=== PATIENT | female | born 1945 | race Caucasian/White ===

== ENCOUNTER 2018-02-17 17:27 | Observation (INO) ==
[2018-02-17] MEDS ORDERED: Isovue-370 500 ML INFUS..BTL IV ONE (17:42)
--- NOTE | 2018-02-17 17:51 | Emergency Department Note ---
Disposition Clinical Impression: Chest pain Qualifiers: Chest pain type: unspecified Qualified Code(s): R07.9 - Chest pain, unspecified Disposition: Admitted As Inpatient Condition: Undetermined Referrals: Ayesha Deras MD [Primary Care Provider] - Forms: ED Satisfaction Letter Time of Disposition: 19:19 Chest Pain HPI - General Chief Complaint: ED Chest Pain Stated Complaint: CP Time Seen by Provider: 02/17/18 17:35 Source: patient Mode of arrival: ambulatory Limitations: no limitations Vital Signs Reviewed: Yes Nursing Notes Reviewed: Yes - History of Present Illness HPI Narrative: 72-year-old female with complaint of chest pain with radiation down the left upper extremity and into her jaw. The patient also is experiencing a headache and mild confusion. The patient states she was walking downtown and started experiencing some chest discomfort as well as headache. The patient states that she became very ill. She decided come to the emergency department for evaluation at that time. The patient states she is expressing chest pain as well as radiation into her head. She is also expressing headache. The patient is expressing some mild confusion as well as she is not answering questions clearly correctly. She denies any other complaints at this time. The patient has had a previous cardiac catheter in the past that was negative no stents placed. Patient denies any other complaints at this time. Severity scale (1-10): 7 - Related Data Previous Rx's Medication Instructions Recorded Hydrocodone/Acetaminophen [[place] 1 tab PO Q6H PRN #15 tab 08/03/15 5-325 Tablet] Allergies Allergy/AdvReac Type Severity Reaction Status Date / Time Sulfa (Sulfonamide AdvReac Itching Verified 04/10/16 00:30 Antibiotics) All systems ED: reviewed and negative except as stated. Constitutional: Denies: fever, chills, weakness ENT ED: Denies: congestion Cardiovascular: Reports: chest pain. Denies: palpitations, dyspnea on exertion , edema Respiratory: Reports: dyspnea. Denies: cough Gastrointestinal: Denies: abdominal pain, nausea, vomiting Genitourinary: Denies: urgency, dysuria Musculoskeletal: Reports: neck pain. 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 - Social History Smoking Status: Never smoker Alcohol use: Reports: occasionally Drug use: Reports: none Physical Exam - General Limitations: no limitations General appearance: alert, in no apparent distress - Head Head exam: atraumatic, normocephalic, normal inspection - Eye Eye exam: Present: normal appearance - ENT ENT exam: normal exam - Neck Neck exam: Present: normal inspection, full ROM, trachea midline - Chest Chest inspection: Present: normal inspection, symmetric chest wall rise - Respiratory Respiratory exam: Present: normal lung sounds bilaterally - Cardiovascular Cardiovascular exam: Present: regular rate, normal rhythm, normal heart sounds - Abdominal Exam Abdominal exam: Present: soft, Non-Tender. Absent: tenderness, distention, guarding, rebound, rigidity - Extremities Exam Extremities exam: Present: normal inspection, full ROM. Absent: tenderness, pedal edema - Neurological Exam Neurological exam: Present: alert, CN II-XII intact - Expanded Neurological Exam Patient oriented to: Present: person, place Speech: Present: fluid speech Cranial nerves: EOM function (II, III, IV, ): Normal, facial sensation (V): Normal, facial palsy (VII): Normal Motor strength - LUE: 4/5 Motor strength - RUE: 4/5 Motor strength - LLE: 4/5 Motor strength - RLE: 4/5 Sensory exam upper extremity: light touch: Abnormal Left Sensory exam lower extremity: light touch: Normal Coma Scale Eye Opening: Spontaneous Coma Scale Motor Response: Obeys Commands Coma Scale Verbal Response: Oriented Coma Scale Total: 15 - Skin Skin exam: Present: warm, dry, intact, normal color Course Vital Signs Temperature 98.0 F 02/17/18 17:27 Pulse Rate 63 02/17/18 17:27 Respiratory Rate 14 02/17/18 17:27 Blood Pressure 157/79 02/17/18 17:27 O2 Sat by Pulse Oximetry 92 02/17/18 17:27 Temperature 98.0 F 02/17/18 17:38 Pulse Rate 65 02/17/18 19:15 Respiratory Rate 18 02/17/18 19:15 Blood Pressure 108/92 02/17/18 19:15 O2 Sat by Pulse Oximetry 93 02/17/18 19:15 Oxygen Delivery Oxygen Delivery Room Air Chest Pain - MDM Narrative Medical decision making narrative: Workup in the emergency department demonstrates no acute findings. The patient' s EKG did not treats no acute changes. The patient's troponin is within normal limits. Given the patient's timing and presentation within 2 hours after injury occurred, we will admit the patient for trending of troponin. The patient is a longer having any chest pain but she is still spirits and headache. Patient denies any other complaints at this time. Her CTA of her chest and states no pulmonary embolus and no vascular injury. In addition the patient's head CT demonstrates no acute process. The patient will be admitted to the hospital for further care and observation. Patient made aware and agrees to plan of care further questions or concerns noted. Patient had NIH of 0. Confusion has improved from initial presentation. We will admit the patient to the ED at this time. Accepted by Dr. Tipton. - Lab Data Lab results reviewed: Yes I reviewed the patient's lab results. Result diagrams: 02/17/18 18:12 02/17/18 18:12 Lab Results 02/17/18 02/17/18 02/17/18 Range/Units 17:43 18:12 18:12 WBC 8.0 (4.3-11.1) K/mcL RBC 3.89 (3.82-4.97) M/mcL Hgb 11.7 (11.5-15.4) g/dL Hct 34.2 L (35.3-44.9) % MCV 87.9 (83.0-100.0) fL MCH 30.1 (28.0-33.3) pg MCHC 34.2 (31.6-35.5) g/dL RDW 13.7 (11.5-14.5) % Plt Count 273 (140-400) K/mcL MPV 8.8 L (9.4-12.4) fL Immature Gran % 0.7 (0-4) % Seg Neutrophils % 78.3 % Lymphocytes % 16.4 % Monocytes % 4.0 % Eosinophils % 0.1 % Basophils % 0.5 % Neutrophils # 6.3 (1.6-8.9) K/mcL Lymphocytes # 1.3 (0.6-4.6) K/mcL Monocytes # 0.3 (0.0-1.3) K/mcL Eosinophils # 0.0 (0.0-0.6) K/mcL Basophils # 0.0 (0.0-0.2) K/mcL PT 10.1 (9.4-12.1) Seconds INR 0.9 APTT 25.1 L (26.0-36.0) Seconds Sodium (136-145) mEq/L Potassium (3.5-5.1) mEq/L Chloride (98-107) mEq/L Carbon Dioxide (23-29) mEq/L BUN (8-23) mg/dL Creatinine (0.60-1.20) mg/dL Est GFR ( Amer) (> 60) Est GFR (Non-Af Amer) (> 60) BUN/Creatinine Ratio (6-26) Glucose (70-105) mg/dL POC Glucose 138 H (70-99) mg/dL Calculated Osmolality (280-300) Calcium (8.6-10.3) mg/dL Troponin I (< 0.04) ng/mL 02/17/18 Range/Units 18:12 WBC (4.3-11.1) K/mcL RBC (3.82-4.97) M/mcL Hgb (11.5-15.4) g/dL Hct (35.3-44.9) % MCV (83.0-100.0) fL MCH (28.0-33.3) pg MCHC (31.6-35.5) g/dL RDW (11.5-14.5) % Plt Count (140-400) K/mcL MPV (9.4-12.4) fL Immature Gran % (0-4) % Seg Neutrophils % % Lymphocytes % % Monocytes % % Eosinophils % % Basophils % % Neutrophils # (1.6-8.9) K/mcL Lymphocytes # (0.6-4.6) K/mcL Monocytes # (0.0-1.3) K/mcL Eosinophils # (0.0-0.6) K/mcL Basophils # (0.0-0.2) K/mcL PT (9.4-12.1) Seconds INR APTT (26.0-36.0) Seconds Sodium 126 L (136-145) mEq/L Potassium 3.7 (3.5-5.1) mEq/L Chloride 96 L (98-107) mEq/L Carbon Dioxide 22 L (23-29) mEq/L BUN 11 (8-23) mg/dL Creatinine 1.04 (0.60-1.20) mg/dL Est GFR ( Amer) > 60 (> 60) Est GFR (Non-Af Amer) 52 L (> 60) BUN/Creatinine Ratio 11 (6-26) Glucose 143 H (70-105) mg/dL POC Glucose (70-99) mg/dL Calculated Osmolality 264 L (280-300) Calcium 9.0 (8.6-10.3) mg/dL Troponin I < 0.03 (< 0.04) ng/mL - Radiology Data Radiology results reviewed: Yes I reviewed the patient's radiology results. Abdomen/Pelvis CTA 02/17/18 00:00 IMPRESSION: 1. No pulmonary embolus. 2. No acute vascular injury including aortic dissection, pseudoaneurysm, or intramural hematoma. 3. No acute intrathoracic abnormality. 4. Mild wall thickening of the gastric antrum and pylorus without adjacent stranding. Findings are nonspecific and may represent mild gastritis. 5. Re-demonstration of prominent upper abdominal lymph node. Some of the nodes are stable, decreased, or increased in size since December 2014 and remain nonspecific. 6. Status post partial colectomy and cholecystectomy. D/ / 02/17/2018 18:54:37 Elizabeth Tirado MD / piyush Interpreting Provider: Elizabeth Tirado MD Chest CTA 02/17/18 17:43 IMPRESSION: 1. No pulmonary embolus. 2. No acute vascular injury including aortic dissection, pseudoaneurysm, or intramural hematoma. 3. No acute intrathoracic abnormality. 4. Mild wall thickening of the gastric antrum and pylorus without adjacent stranding. Findings are nonspecific and may represent mild gastritis. 5. Re-demonstration of prominent upper abdominal lymph node. Some of the nodes are stable, decreased, or increased in size since December 2014 and remain nonspecific. 6. Status post partial colectomy and cholecystectomy. D/ / 02/17/2018 18:54:37 Elizabeth Tirado MD / piyush Interpreting Provider: Elizabeth Tirado MD Head CT 02/17/18 17:46 IMPRESSION: No acute intracranial abnormality. D/ / Minor Isbell MD / Minor Isbell MD Interpreting Provider: Minor Isbell MD - EKG Data EKG attestation: Yes I reviewed and interpreted this EKG. EKG results narrative: Heart rate 61 beats per. Electronic ventricular pacemaker. No ST elevation or ST depression noted. No acute changes noted.
--- NOTE | 2018-02-17 18:25 | Emergency Department Note ---
Disposition Clinical Impression: Chest pain Qualifiers: Chest pain type: unspecified Qualified Code(s): R07.9 - Chest pain, unspecified Disposition: Still a Patient Condition: Good Forms: ED Satisfaction Letter General Adult HPI - General Chief complaint: ED Chest Pain Stated complaint: CP Time Seen by Provider: 02/17/18 17:35 Source: patient Mode of arrival: ambulatory Limitations: no limitations - History of Present Illness Pain Scale: 7 - Related Data Previous Rx's Medication Instructions Recorded Hydrocodone/Acetaminophen [[place] 1 tab PO Q6H PRN #15 tab 08/03/15 5-325 Tablet] Allergies Allergy/AdvReac Type Severity Reaction Status Date / Time Sulfa (Sulfonamide AdvReac Itching Verified 04/10/16 00:30 Antibiotics) Constitutional: Denies: fever, chills, weakness ENT ED: Denies: congestion Cardiovascular: Reports: chest pain. Denies: palpitations, dyspnea on exertion , edema Respiratory: Reports: dyspnea. Denies: cough Gastrointestinal: Denies: abdominal pain, nausea, vomiting Genitourinary: Denies: urgency, dysuria Musculoskeletal: Reports: neck pain. 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 - Social History Smoking Status: Never smoker Smokeless Tobacco Status: No Alcohol use: Reports: occasionally Drug use: Reports: none Physical Exam - General Limitations: no limitations General appearance: alert, in no apparent distress Course Vital Signs Temperature 98.0 F 02/17/18 17:27 Pulse Rate 63 02/17/18 17:27 Respiratory Rate 14 02/17/18 17:27 Blood Pressure 157/79 02/17/18 17:27 O2 Sat by Pulse Oximetry 92 02/17/18 17:27 Temperature 98.0 F 02/17/18 17:38 Pulse Rate 65 02/17/18 17:45 Respiratory Rate 18 02/17/18 17:45 Blood Pressure 144/70 02/17/18 18:10 O2 Sat by Pulse Oximetry 96 02/17/18 17:45 Oxygen Delivery Oxygen Delivery Room Air Medical Decision Making - Lab Data Lab Results 02/17/18 Range/Units 17:43 POC Glucose 138 H (70-99) mg/dL Attestation Statement - Attestation Attestation: I examined this patient and my medical decision-making was reviewed with the Resident Physician. I agree with the documented findings, disposition and treatment plan as described except to the extent set forth below. 72 yearold female presnets to the ED with complanis of weakness and headache and pain that radiates into her biltaeral arms and legs while she was shopping today. PAtinet had asymmetric bilateral blood pressures, no abodminal pain. WE will do cardiopumonary workup and CTA Chestto rule out dissection. Likely will admit to medicnie.
[2018-02-17 18:39] LABS: Basophils % 0.5 %; Eosinophils % 0.1 %; Hematocrit 34.2 % (35.3-44.9); Hemoglobin 11.7 g/dL (11.5-15.4); Immature Granulocytes % 0.7 % (0-4); Lymphocytes # 1.3 K/mcL (0.6-4.6); Lymphocytes % 16.4 %; Mean Corpuscular HGB Conc 34.2 g/dL (31.6-35.5); Mean Corpuscular Hemoglobin 30.1 pg (28.0-33.3); Mean Corpuscular Volume 87.9 fL (83.0-100.0); Mean Platelet Volume 8.8 fL (9.4-12.4); Monocytes # 0.3 K/mcL (0.0-1.3); Neutrophils # 6.3 K/mcL (1.6-8.9); Platelet Count 273 K/mcL (140-400); Red Blood Count 3.89 M/mcL (3.82-4.97); Red Cell Distribution Width 13.7 % (11.5-14.5); Segmented Neutrophils % 78.3 %
[2018-02-17 18:58] LABS: BUN/Creatinine Ratio 11 (6-26); Blood Urea Nitrogen 11 mg/dL (8-23); Carbon Dioxide 22 mEq/L (23-29); Chloride 96 mEq/L (98-107); Glucose 143 mg/dL (70-105); Osmolality,Calculated 264 (280-300); Potassium 3.7 mEq/L (3.5-5.1); Sodium 126 mEq/L (136-145); Troponin I < 0.03 ng/mL (< 0.04); eGFR For African Americans > 60 (> 60); eGFR For Non-African Americans 52 (> 60)
[2018-02-17 19:03] LABS: INR 0.9; Prothrombin Time 10.1 Seconds (9.4-12.1)
[2018-02-17 19:04] LABS: Activated Partial Thrombo Time 25.1 Seconds (26.0-36.0)
[2018-02-17] MEDS ORDERED: Aspirin 325 MG TABLET PO ONE (19:11)
--- NOTE | 2018-02-17 20:14 | Internal Med History&Physical ---
Date of Encounter: 02/17/18 Time of Encounter: 08:00 Internal Medicine - H&P: HPI Chief complaint: Chest Pain Admitted From: Emergency Dept Plans for Post Hospital Care: Home History of present illness: Ms. Almeida is a 72 year old female patient with a history of hypertension, gastroesophageal reflux disease who came to the ER with complaints of chest heaviness. She was out shopping and began to have some chest heaviness along with a headache. She sat down for a while in her car with some improvement in her symptoms. She then went and ate but continued to feel sick. As such she came to the ER. She reports severe headache with some tearing of her left eye. No focal weakness or numbness. She does not have the chest heaviness right now. The pain radiated to her shoulders. She reports she had a heart catheterization before which was negative. She is also add stress test before which were negative. No work up in the past year. She has a pacemaker due to what sounds like heart block. She denies any shortness of breath at this time. No orthopnea or PND. She had previously had an episode of intractable headache on Saturday which took almost a day to improve. Past Med Surg Social Fam HX - Past Medical History Attestation: Yes The following information was validated with the patient. Source: patient Medical history: cancer, GERD, hypertension Additional medical history: colon cancer Psychiatric history: anxiety, panic disorder - Past Surgical History Surgical History: appendectomy, cholecystectomy, pacemaker/AICD Additional surgical history: right rotator cuff surgery, Colon surgery - Social History Smoking Status: Never smoker Smokeless Tobacco Status: No Alcohol use: occasionally Drug use: none - Additional Family History Additional family history: Family history reviewed and found to be noncontributory at this time. Internal Medicine - H&P: Meds Escitalopram [Lexapro] 20 mg PO DAILY 02/17/18 [History] Esomeprazole Magnesium [Nexium] 40 mg PO DAILY 02/17/18 [History] Losartan Potassium [Cozaar] 50 mg PO DAILY 02/17/18 [History] Zolpidem [Ambien] 10 mg PO HS 02/17/18 [History] 3 Allergy/AdvReac Type Severity Reaction Status Date / Time Sulfa (Sulfonamide AdvReac Itching Verified 02/17/18 19:23 Antibiotics) All Systems PM: A 10-system review of systems was performed and is negative for pertinent findings except as documented above in the HPI. - Constitutional Constitutional: no chills, no fever(s), no night sweats - EENT Eyes: no change in vision, no discharge, no pain, no photophobia Ears: no ear discharge, no ear pain, no tinnitus Nose, mouth and throat: no dysphagia, no nasal discharge, no neck pain, no sore throat - Cardiovascular Cardiovascular ROS IM: no chest pain, no diaphoresis, no dyspnea, no lightheadedness, no palpitations, no syncope - Respiratory Respiratory: no cough, no dyspnea, no wheezing, no excessive phlegm production - Gastrointestinal Gastrointestinal: no abdominal pain, no diarrhea, no hematemesis, no hematochezia, no melena, no nausea, no vomiting - Genitourinary Genitourinary: no change in urinary stream, no dysuria, no flank pain, no hematuria - Musculoskeletal Musculoskeletal ROS IM: no numbness, no tingling - Integumentary Integumentary IM: no rash, no unusual bruising - Neurological Neurological ROS: no confusion, no convulsions, no focal weakness, no numbness, no tingling, no tremor(s) - Hematologic/Lymphatic Hematologic/Lymphatic: no easy bruising - Constitutional Vitals: Temp Pulse Resp BP Pulse Ox 98.0 F 64 18 146/69 95 02/17/18 17:38 02/17/18 19:27 02/17/18 19:27 02/17/18 19:27 02/17/18 19:27 General appearance: Present: cooperative, A&O X 3, answers questions appropriately - Respiratory Respiratory exam: Present: CTAB. Absent: accessory muscle use, rales, rhonchi, wheezes - Cardiovascular Cardiovascular exam: Present: RRR, +S1, +S2. Absent: diastolic murmur, gallop, rubs, systolic murmur - GI/Abdominal GI/Abdominal exam: Present: normal bowel sounds, soft, no peritoneal signs. Absent: distended, tenderness Internal Med - H&P Results - Labs CBC & Chem 7: 02/17/18 18:12 02/17/18 18:12 Labs: Short CBC 02/17/18 Range/Units 18:12 WBC 8.0 (4.3-11.1) K/mcL Hgb 11.7 (11.5-15.4) g/dL Hct 34.2 L (35.3-44.9) % Plt Count 273 (140-400) K/mcL Neutrophils # 6.3 (1.6-8.9) K/mcL BMP 02/17/18 18:12 Sodium 126 L Potassium 3.7 Chloride 96 L Carbon Dioxide 22 L BUN 11 Creatinine 1.04 Glucose 143 H Calcium 9.0 Cardiac Enzymes 02/17/18 Range/Units 18:12 Troponin I < 0.03 (< 0.04) ng/mL - EKG Data -: EKG Interpreted by Myself - EKG Data EKG comments: 02/17/18 20:46 Paced rhythm - Impressions ITS Impressions Abdomen/Pelvis CTA 02/17/18 00:00 IMPRESSION: 1. No pulmonary embolus. 2. No acute vascular injury including aortic dissection, pseudoaneurysm, or intramural hematoma. 3. No acute intrathoracic abnormality. 4. Mild wall thickening of the gastric antrum and pylorus without adjacent stranding. Findings are nonspecific and may represent mild gastritis. 5. Re-demonstration of prominent upper abdominal lymph node. Some of the nodes are stable, decreased, or increased in size since December 2014 and remain nonspecific. 6. Status post partial colectomy and cholecystectomy. D/ / 02/17/2018 18:54:37 Elizabeth Tirado MD / piyush Interpreting Provider: Elizabeth Tirado MD Chest CTA 02/17/18 17:43 IMPRESSION: 1. No pulmonary embolus. 2. No acute vascular injury including aortic dissection, pseudoaneurysm, or intramural hematoma. 3. No acute intrathoracic abnormality. 4. Mild wall thickening of the gastric antrum and pylorus without adjacent stranding. Findings are nonspecific and may represent mild gastritis. 5. Re-demonstration of prominent upper abdominal lymph node. Some of the nodes are stable, decreased, or increased in size since December 2014 and remain nonspecific. 6. Status post partial colectomy and cholecystectomy. D/ / 02/17/2018 18:54:37 Elizabeth Tirado MD / piyush Interpreting Provider: Elizabeth Tirado MD Head CT 02/17/18 17:46 IMPRESSION: No acute intracranial abnormality. D/ / Minor Isbell MD / Minor Isbell MD Interpreting Provider: Minor Isbell MD - Assessment and plan (1) Chest pain Current Visit: Yes Status: Acute Assessment and plan: Patient at intermediate risk for coronary artery disease due to age, comorbidities. We will place patient in hospital for observation. Telemetry. Trend troponins. If troponins are negative, consider stress test tomorrow. Check lipid profile and A1c. Qualifiers: Chest pain type: precordial pain Qualified Code(s): R07.2 - Precordial pain (2) Headache Current Visit: Yes Status: Acute Assessment and plan: Patient with headache with tearing in the left eye. Tension type versus cluster headache. We will treat symptomatically. We will avoid NSAIDs due to history of GERD. Treat with Tylenol, O2 supplementation as needed. Qualifiers: Headache type: tension-type Headache chronicity pattern: acute headache Intractability: intractable Qualified Code(s): G44.201 - Tension-type headache , unspecified, intractable (3) Essential hypertension Current Visit: Yes Status: Chronic Assessment and plan: Monitor blood pressure. Resume home medications (4) Gastroesophageal reflux disease Current Visit: Yes Status: Chronic Assessment and plan: Continue PPI Qualifiers: Esophagitis presence: esophagitis presence not specified Qualified Code(s) : K21.9 - Gastro-esophageal reflux disease without esophagitis - Time Spent With Patient Total time spent is greater than 50% in coordination of care (as documented) at patient's floor/unit and/or counseling patient:
[2018-02-17] MEDS ORDERED: Acetaminophen 325 MG TABLET PO PRN (20:49)
[2018-02-17] MEDS ORDERED: Naloxone 0.4 MG/ML INJ IVP PRN (20:49)
[2018-02-17] MEDS ORDERED: 0.9 % Sodium Chloride 1,000 ML IVC SCH (21:00)
[2018-02-18 02:22] LABS: Basophils % 0.3 %; Eosinophils % 0.5 %; Hemoglobin 12.3 g/dL (11.5-15.4); Immature Granulocytes % 0.3 % (0-4); Lymphocytes # 2.4 K/mcL (0.6-4.6); Lymphocytes % 26.5 %; Mean Corpuscular HGB Conc 34.2 g/dL (31.6-35.5); Mean Corpuscular Hemoglobin 29.4 pg (28.0-33.3); Mean Corpuscular Volume 85.9 fL (83.0-100.0); Mean Platelet Volume 9.3 fL (9.4-12.4); Monocytes # 0.7 K/mcL (0.0-1.3); Monocytes % 8.1 %; Neutrophils # 5.7 K/mcL (1.6-8.9); Platelet Count 303 K/mcL (140-400); Red Blood Count 4.19 M/mcL (3.82-4.97); Red Cell Distribution Width 13.9 % (11.5-14.5); Segmented Neutrophils % 64.3 %
[2018-02-18 02:44] LABS: BUN/Creatinine Ratio 11 (6-26); Blood Urea Nitrogen 11 mg/dL (8-23); Calcium 9.6 mg/dL (8.6-10.3); Carbon Dioxide 25 mEq/L (23-29); Chloride 99 mEq/L (98-107); Chol/HDL Ratio 3.6 (0-4.9); Cholesterol 202 mg/dL (< 200); Glucose 103 mg/dL (70-105); HDL Cholesterol 56 mg/dL (40-59); LDL Cholesterol,Calculated 88 mg/dL (0-99); Osmolality,Calculated 272 (280-300); Potassium 3.9 mEq/L (3.5-5.1); Sodium 131 mEq/L (136-145); Triglycerides 289 mg/dL (< 150); eGFR For African Americans > 60 (> 60); eGFR For Non-African Americans 53 (> 60)
[2018-02-18] MEDS ORDERED: Regadenoson 0.4 MG/5 ML SYRINGE IVP ONE (05:35)
[2018-02-18 15:39] VITALS: BP 153/71
--- NOTE | 2018-02-18 16:49 | Electrocardiograph Report ---
[place] [id number] Test Date: 2018-02-17 Pat Name: Kellie Almeida Department: 104 Room: 3B23 Gender: F Communications Attendant: : 1945 Requested By: Rogerio Nascimento Order Number: [id number] Reading MD: Reji Villela Measurements Intervals [place] Rate: 61 P: 46 CO: 203 QRS: -73 QRSD: 174 T: 69 QT: 472 QTc: 475 Interpretive Statements ELECTRONIC VENTRICULAR PACEMAKER ABNORMAL RHYTHM ECG Electronically Signed On 02-18-2018 16:47:05 EDT by Reji Villela
--- NOTE | 2018-02-18 16:53 | Discharge Summary ---
- NOTES TO OUTPATIENT PROVIDER Notes to Outpatient Provider: Nuclear stress Impression: Perfusion imaging was negative for ischemia. Small sized, moderate intensity fixed perfusion defect involving the apical. inferior wall. Findings likely represent artifact. However prior infarct. cannot be ruled out. Hyponatremia- monitor Chem-7 Orders not resulted at time of discharge: Pending orders 02/17/18 21:58 NM donna perf SPECT multi [NM] Routine Date of Encounter: 02/18/18 Time of Encounter: 16:49 - Discharge Diagnosis (1) Chest pain Priority: Primary Status: Acute Qualifiers: Chest pain type: precordial pain Qualified Code(s): R07.2 - Precordial pain (2) Headache Priority: Secondary Status: Acute Qualifiers: Headache type: tension-type Headache chronicity pattern: acute headache Intractability: intractable Qualified Code(s): G44.201 - Tension-type headache , unspecified, intractable (3) Essential hypertension Priority: Secondary Status: Chronic (4) Gastroesophageal reflux disease Priority: Secondary Status: Chronic Qualifiers: Esophagitis presence: esophagitis presence not specified Qualified Code(s) : K21.9 - Gastro-esophageal reflux disease without esophagitis Hospital course: Ms. Almeida is a 72 year old female past medical history of hypertension GERD KDR complaints of chest heaviness as well as headache. Rest did relieve her symptoms she did have recent history of intractable headache. Chest CTA was completed which was negative for any PE head CT was negative for any acute intracranial on normalities CT abdomen and pelvis with no acute abnormalities headache was treated symptomatically-headache improved and resolved-troponins were negative [address]-T wave abnormalities patient underwent a nuclear cardiac stress test which was negative for any ischemia it did show small size moderate intensity fixed perfusion defect involving the apical inferior wall. Finds like to represent artifact however prior infarct cannot be ruled out. Patient did have some hyponatremia on presentation -she does have a history of low sodium she was given IV fluids overnight and sodium has improved and returned to baseline. She denies any chest pain or headache at this time. 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 I did advise patient the benefits of cardiac diet-low fat-I did give the patient a prescription for daily 81 mg aspirin. Patient verbalized understanding she is hemodynamically stable and ready for discharge. Discharge discussed with: patient - Time Spent with Patient Total time spent providing and/or coordinating discharge services: - Discharge Medications Prescriptions: Aspirin 81 mg PO DAILY #30 tab.chew Home Medications: Escitalopram [Lexapro] 20 mg PO DAILY 02/17/18 [History] Esomeprazole Magnesium [Nexium] 40 mg PO DAILY 02/17/18 [History] Losartan Potassium [Cozaar] 50 mg PO DAILY 02/17/18 [History] Zolpidem [Ambien] 10 mg PO HS 02/17/18 [History] Aspirin 81 mg PO DAILY #30 tab.chew 02/18/18 [Rx] Allergies/Adverse Reactions: 3 Allergy/AdvReac Type Severity Reaction Status Date / Time Sulfa (Sulfonamide AdvReac Itching Verified 02/17/18 19:23 Antibiotics) Date of admission: 02/17/18 21:24 Primary care physician: Ayesha Deras, Discharging clinician: Swetha Yee Anticipated date of discharge: 02/18/18 - Constitutional Vitals: Temp Pulse Resp BP Pulse Ox 97.5 F L 72 16 153/71 92 02/18/18 15:37 02/18/18 15:37 02/18/18 15:37 02/18/18 15:37 02/18/18 15:37 General appearance: Present: cooperative, A&O X 3, answers questions appropriately - Head Head exam: Present: atraumatic, normocephalic - Eye Eye exam: Present: PERRL, conjuntiva pink, sclera anicteric Pupils: Present: PERRL - Neck Neck exam general surgery: Present: supple, trachea midline. Absent: lymphadenopathy - Respiratory Respiratory exam: Present: CTAB. Absent: accessory muscle use, rales, rhonchi, wheezes - Cardiovascular Cardiovascular exam: Present: RRR, +S1, +S2. Absent: diastolic murmur, gallop, rubs, systolic murmur - GI/Abdominal GI/Abdominal exam: Present: normal bowel sounds, soft, no peritoneal signs. Absent: distended, tenderness - Extremities Exam Extremities exam: Present: warm, radial pulses palpable and symmetrical. Absent : calf tenderness, cyanotic, pedal edema - Neurological Exam Neurological exam: Present: CN II-XII intact, oriented X3, no focal deficits. Absent: pronater drift, facial droop, speech deficit - Skin Skin exam: Present: dry, intact - Patient Status Disposition: Home, Self-Care Condition: Good Functional capacity at discharge: independent ambulation Overall status at discharge: patient is back to baseline - Discharge Instructions Instructions: Chest Pain (DC), Chronic Hypertension (DC) Follow Up With: [facility] [Provider Group] Montse Hudson [Advanced Practice Nurse] - 03/07/18 1:00 pm Ayesha Deras MD [Primary Care Provider] - - Diet and Activity Activity: increase activity as tolerated Diet: low fat, low cholesterol
== END 2018-02-18 17:32 | disposition home or self-care (01) ==
LOC: 3BNU 17:27 → EMEROO 17:27 → 3BNU 21:51
PROVIDERS: ADMIT Internal Medicine; ATTEND Internal Medicine